=== PATIENT | female | born 1975 | race Native Hawaiian/Other Pacific Islander ===

== ENCOUNTER 2016-06-24 18:12 | Emergency (ER) | payer SELFPAY ==
[2016-06-24 19:47] LABS: Basophils % (Auto) 0.5 % (0.0-1.8); Eosinophils % (Auto) 4.1 % (0.0-4.3); Hematocrit 32.5 % (30.3-42.9); Hemoglobin 11.1 gm/dl (10.1-14.3); Mean Corpuscular HGB Conc 34 % (30-34); Mean Corpuscular Hemoglobin 29 pg (28-32); Mean Corpuscular Volume 86 fl (79-97); Platelet Count 287 K/mm3 (140-440); Red Blood Count 3.76 M/mm3 (3.65-5.03); Red Cell Distribution Width 13.3 % (13.2-15.2); White Blood Count 9.3 K/mm3 (4.5-11.0)
--- NOTE | 2016-06-24 20:30 | Emergency Department Report ---
Chief Complaint: Vaginal Bleeding Stated Complaint: LIGHTHEADED/DIZZINESS Time Seen by Provider: 06/24/16 20:18 - HPI History of Present Illness: 41-year-old female in some a complaint of vaginal bleeding 3 weeks. Patient reports that she has to Exelon contraceptive in her left arm placed in April 2016. She did not have a menses for the month of April or May started bleeding 06/11/2016. The blood started light and now has progressively gotten heavier with clots. Patient complains of dizziness and weakness. She reports that she went to her doctor on and was given oral contraceptives to prevent the bleeding. Patient has taken 3 days worth of pills and still having bleeding. - Exam Vital Signs: Vital Signs 06/24/16 19:17 Temperature 98.3 F Pulse Rate 91 H Blood Pressure 133/91 O2 Sat by Pulse 100 Oximetry Physical Exam: He is alert and oriented 3. Cardiovascular S1-S2 regular rate and rhythm respiratory clear to auscultation bilaterally abdomen soft nontender nondistended MSE screening note: Focused history and physical exam performed. Due to findings the following was ordered: Labs are ordered CBCs BMP type and screen serum UA ED Medical Decision Making - Lab Data Result diagrams: 06/24/16 19:27 ED Disposition for MSE Condition: Stable
[2016-06-24 22:36] LABS: Bilirubin,Urine NEG (Negative); Blood,Urine LG (Negative); Ketones,Urine NEG (Negative); Leukocyte Esterase,Urine NEG (Negative); Mucus,Urine FEW /HPF; Nitrite,Urine NEG (Negative); Protein,Urine <15 mg/dL mg/dL (Negative); Urobilinogen,Urine < 2.0 mg/dL (<2.0); WBC,Urine < 1.0 /HPF (0.0-6.0)
--- NOTE | 2016-06-25 06:12 | Emergency Department Report ---
ED General Adult HPI - General Chief complaint: Vaginal Bleeding Stated complaint: LIGHTHEADED/DIZZINESS Time Seen by Provider: 06/24/16 20:18 Source: patient Mode of arrival: Ambulatory Limitations: No Limitations - History of Present Illness Initial comments: She complains of irregular vaginal bleeding 4 days. She has a control implant. She states that the bleeding has now stopped. She has a regular application security architect. She does not complain of any substantial weakness. She denies abdominal pain or shortness of breath. She is also having cold symptoms. She denies productive sputum. She has some sore throat. She doesn't report recent fever or chills. -: Gradual, days(s) Severity scale (0 -10): 0 Consistency: intermittent, now resolved Improves with: none Worsens with: none Associated Symptoms: denies other symptoms Treatments Prior to Arrival: none - Related Data Previous Rx's Medication Instructions Recorded Last Taken Type Ferrous Gluconate [Fergon 325 MG 325 mg PO TID #20 tablet 06/25/16 Unknown Rx tab] Allergies Allergy/AdvReac Type Severity Reaction Status Date / Time No Known Allergies Allergy Unverified 06/24/16 19:22 ED Review of Systems ROS: Stated complaint: LIGHTHEADED/DIZZINESS Other details as noted in HPI Constitutional: denies: chills, fever Eyes: denies: eye pain, eye discharge, vision change ENT: denies: ear pain, throat pain Respiratory: denies: cough, shortness of breath, wheezing Cardiovascular: denies: chest pain, palpitations Endocrine: no symptoms reported Gastrointestinal: denies: abdominal pain, nausea, diarrhea Genitourinary: denies: urgency, dysuria, discharge Musculoskeletal: denies: back pain, joint swelling, arthralgia Skin: denies: rash, lesions Neurological: denies: headache, weakness, paresthesias Psychiatric: denies: anxiety, depression Hematological/Lymphatic: denies: easy bleeding, easy bruising ED Past Medical Hx - Past Medical History Previous Medical History?: No - Surgical History Past Surgical History?: No - Social History Smoking Status: Never Smoker - Medications Home Medications: Home Medications Medication Instructions Recorded Confirmed Last Taken Type Ferrous Gluconate [Fergon 325 MG 325 mg PO TID #20 tablet 06/25/16 Unknown Rx tab] ED Physical Exam - General Limitations: No Limitations General appearance: alert, in no apparent distress - Head Head exam: Present: atraumatic, normocephalic - Eye Eye exam: Present: normal appearance. Absent: scleral icterus - ENT ENT exam: Present: normal exam, mucous membranes moist - Neck Neck exam: Present: normal inspection - Respiratory Respiratory exam: Present: normal lung sounds bilaterally. Absent: respiratory distress - Cardiovascular Cardiovascular Exam: Present: regular rate, normal rhythm. Absent: systolic murmur, diastolic murmur, rubs, gallop - GI/Abdominal GI/Abdominal exam: Present: soft, normal bowel sounds. Absent: distended, tenderness, guarding, rebound, rigid - Extremities Exam Extremities exam: Present: normal inspection - Back Exam Back exam: Present: normal inspection - Neurological Exam Neurological exam: Present: alert, oriented X3, CN II-XII intact. Absent: motor sensory deficit - Psychiatric Psychiatric exam: Present: normal affect, normal mood - Skin Skin exam: Present: warm, dry, intact, normal color. Absent: rash ED Course Vital Signs 06/24/16 06/25/16 06/25/16 19:17 02:28 04:38 Temperature 98.3 F 97.7 F 98.0 F Pulse Rate 91 H 72 70 Respiratory 18 18 Rate Blood Pressure 133/91 148/99 Blood Pressure 135/70 [Right] O2 Sat by Pulse 100 100 100 Oximetry 06/25/16 04:46 Temperature Pulse Rate Respiratory 18 Rate Blood Pressure Blood Pressure [Right] O2 Sat by Pulse 98 Oximetry ED Medical Decision Making - Lab Data Result diagrams: 06/24/16 19:27 Laboratory Results - last 24 hr 06/24/16 06/24/16 06/24/16 19:27 19:30 20:38 WBC 9.3 RBC 3.76 Hgb 11.1 Hct 32.5 MCV 86 MCH 29 MCHC 34 RDW 13.3 Plt Count 287 Lymph % (Auto) 31.0 Reagan % (Auto) 5.6 Eos % (Auto) 4.1 Baso % (Auto) 0.5 Lymph # 2.9 Reagan # 0.5 Eos # 0.4 Baso # 0.0 Seg Neutrophils % 58.8 Seg Neutrophils # 5.5 HCG, Quant < 2 Urine Color Urine Turbidity Urine pH Ur Specific [place] Urine Protein Urine Glucose (UA) Urine Ketones Urine Blood Urine Nitrite Urine Bilirubin Urine Urobilinogen Ur Leukocyte Esterase Urine WBC (Auto) Urine RBC (Auto) U Epithel Cells (Auto) Urine Mucus Blood Type O POSITIVE Antibody Screen Negative 06/24/16 22:00 WBC RBC Hgb Hct MCV MCH MCHC RDW Plt Count Lymph % (Auto) Reagan % (Auto) Eos % (Auto) Baso % (Auto) Lymph # Reagan # Eos # Baso # Seg Neutrophils % Seg Neutrophils # HCG, Quant Urine Color Straw Urine Turbidity Clear Urine pH 6.0 Ur Specific [place] 1.009 Urine Protein <15 mg/dl Urine Glucose (UA) Neg Urine Ketones Neg Urine Blood Lg Urine Nitrite Neg Urine Bilirubin Neg Urine Urobilinogen < 2.0 Ur Leukocyte Esterase Neg Urine WBC (Auto) < 1.0 Urine RBC (Auto) 65.0 U Epithel Cells (Auto) 2.0 Urine Mucus Few Blood Type Antibody Screen Critical care attestation.: If time is entered above; I have spent that time in minutes in the direct care of this critically ill patient, excluding procedure time. ED Disposition Clinical Impression: Dysfunctional uterine bleeding Anemia Qualifiers: Anemia type: unspecified type Qualified Code(s): D64.9 - Anemia, unspecified Disposition: DISCHARGED TO HOME OR SELFCARE Is pt being admited?: No Does the pt Need Aspirin: No Condition: Stable Instructions: Dysfunctional Uterine Bleeding (ED), Anemia (ED) Additional Instructions: Follow up with your application security architect return any acute change or problem. If there is persistent bleeding begin iron pills. Return if there is significant bleeding. Prescriptions: Ferrous Gluconate [Fergon 325 MG tab] 325 mg PO TID #20 tablet Referrals: PRIMARY CARE, [Primary Care Provider] - 3-5 Days usual, application security architect [Other] - 3-5 Days Time of Disposition: 06:46
[2016-06-25 06:54] VITALS: BP 130/80
== END 2016-06-25 07:15 | disposition home or self-care (01) ==
LOC: ED 18:12
DX: N93.8 Other specified abnormal uterine and vaginal bleeding (principal); D64.9 Anemia, unspecified
CPT/HCPCS: 36415; 81001; 84702; 85025; 86850; 86900; 86901; 93005; 93010; 99283